=== PATIENT | female | born 1990 | race African-American/Black ===

== ENCOUNTER 2017-10-27 12:08 | Emergency (ER) | payer MEDICAID ==
[~2017-10-27] VITALS: Ht 175.3 cm; Wt 75.0 kg
[2017-10-27] MEDS ORDERED: METOCLOPRAMIDE 10MG/10 ML UDC PO ONE (15:30)
[2017-10-27 15:55] LABS: BASOPHILS % 0.7 % (0.0-2.0); EOSINOPHILS % 2.3 % (0.0-5.0); HEMATOCRIT. 37.4 % (36.0-48.0); HEMOGLOBIN. 12.2 g/dL (12.0-16.0); LYMPHOCYTES % 21.1 % (20.0-50.0); MEAN CORPUSCULAR HEMOGLOBIN 26.9 pg (28.0-32.0); MEAN CORPUSCULAR VOLUME 82.1 fL (81.0-99.0); MEAN PLATELET VOLUME 10.7 fl (7.4-10.4); MONOCYTES % 10.2 % (2.0-8.0); NEUTROPHILS % 65.7 % (40.0-76.0); PLATELET 179 x1000/uL (130-400); RED BLOOD CELL COUNT 4.56 mill/uL (4.2-5.4); RED CELL DISTRIBUTION WIDTH 15.3 % (11.6-14.6)
[2017-10-27 16:13] LABS: CHLORIDE 104 mEq/L (98-107)
[2017-10-27 16:24] LABS: B-HCG QUANTITATIVE 79762 mIU/mL (<3)
[2017-10-27 16:54] VITALS: BP 112/70
== END 2017-10-27 17:02 | disposition home or self-care (01) ==
LOC: ER 13:32
DX: O20.0 Threatened abortion (principal); O21.0 Mild hyperemesis gravidarum; Z3A.01 Less than 8 weeks gestation of pregnancy; Z88.0 Allergy status to penicillin
CPT/HCPCS: 36415; 76801; 80053; 81025; 84702; 85025; 86850; 86900; 99285; J8597